=== PATIENT | male | born 1965 | race Caucasian/White ===

== ENCOUNTER 2020-12-30 17:49 | Emergency (ER) | payer OTHER ==
[~2020-12-30 17:49] MED LIST: Iopamidol 370 76% 100 ML VIAL ONE
[2020-12-30 18:37] LABS: ALT (SGPT) 15 U/L (8-55); AST (SGOT) 25 U/L (5-34); Albumin 3.8 g/dL (3.5-5.0); Alkaline Phosphatase 53 U/L (40-110); Anion Gap 11 mmol/L (10-20); BUN (Urea Nitrogen) 22 mg/dL (8.4-25.7); Bilirubin, Total 0.9 mg/dL (0.2-1.2); Calc. Creatinine Clearance 0 mL/min (70-130); Calcium 9.3 mg/dL (7.8-10.44); Carbon Dioxide 28 mmol/L (22-29); Chloride 100 mmol/L (98-107); Globulin 3.6 g/dL (2.4-3.5); Glucose 114 mg/dL (70-105); Protein, Total 7.4 g/dL (6.0-8.3); Sodium 135 mmol/L (136-145)
[2020-12-30 18:44] LABS: #Basophils 0.2 thou/uL (0.0-0.2); #Eosinphils 0.1 thou/uL (0.0-0.7); #Lymphocytes 2.6 thou/uL (1.20-3.40); #Monocytes 1.4 thou/uL (0.11-0.59); %Eosinophils 1.4 % (0.0-10.0); %Lymphocytes 24.8 % (21.0-51.0); %Neutrophils 57.9 % (42.0-75.0); Hemoglobin 13.3 g/dL (14.0-18.0); Mean Corpuscular HGB CONC 31.5 g/dL (32.0-36.0); Mean Corpuscular Hemoglobin 29.6 pg (27.0-31.0); Mean Corpuscular Volume 94.1 fL (78.0-98.0); Mean Platelet Volume 8.9 fL (7.4-10.4); Platelet Count 166 thou/uL (130-400); White Blood Cell (WBC) Count 10.3 thou/uL (4.8-10.8)
[2020-12-30 21:56] LABS: Troponin I Less than 0.010 ng/mL (< 0.028)
[2020-12-30] MEDS ORDERED: Acetaminophen 500 MG TAB ONE (23:05)
[2020-12-30] MEDS ORDERED: Furosemide 40 MG TAB ONE (23:32)
[2020-12-30] MEDS ORDERED: Carvedilol 3.125 MG TAB ONE (23:32)
[2020-12-30] MEDS ORDERED: Docusate 100 MG CAP ONE (23:33)
[2020-12-30] MEDS ORDERED: Spironolactone 100 MG TAB ONE (23:38)
[2020-12-30] MEDS ORDERED: Terazosin HCl 1 MG CAP PO SCH (23:59)
[2020-12-30] MEDS ORDERED: Spironolactone 25 MG TAB PO SCH (23:59)
[2020-12-31 03:51] LABS: Troponin I 0.026 ng/mL (< 0.028)
[2020-12-31] MEDS ORDERED: ETRAVIRINE FS SCH (04:15)
[2020-12-31] MEDS ORDERED: RALTEGRAVIR POTASSIUM FS SCH (04:15)
[2020-12-31] MEDS ORDERED: Losartan Potassium 50 MG TAB ONE (09:52)
[2020-12-31] MEDS ORDERED: Digoxin 0.125 MG TAB ONE (10:00)
[2020-12-31] MEDS ORDERED: DULoxetine 30 MG CAP ONE (10:00)
[2020-12-31] MEDS ORDERED: Aspirin Chewable 81 MG TAB ONE (10:12)
[2020-12-31] MEDS ORDERED: Morphine ER 15 MG TAB PO SCH (10:15)
== END 2020-12-30 21:55 | disposition short-term general hospital (02) ==
LOC: NAV ERS 17:49
DX: R07.9 Chest pain, unspecified (principal); I10 Essential (primary) hypertension; B20 Human immunodeficiency virus [HIV] disease; Z79.899 Other long term (current) drug therapy
CPT/HCPCS: 36415; 71045; 71275; 80053; 83880; 84484; 85025; 85379; 93005; Q9967